=== PATIENT | male | born 1945 | race African-American/Black ===

== ENCOUNTER 2020-11-14 14:28 | Inpatient (IN) | payer OTHER, MEDICAID ==
[~2020-11-14] VITALS: Ht 177.8 cm; Wt 101.6 kg
[2020-11-14] MEDS ORDERED: SODIUM CHLORIDE 0.9% 1,000 ML IV ONE (15:00)
[2020-11-14 15:32] LABS: BASOPHILS % 0.5 % (0.0-2.0); LYMPHOCYTES % 21.5 % (20.0-50.0); MEAN CORPUSCULAR HEMOGLOBIN 30.7 pg (28.0-32.0); MEAN CORPUSCULAR VOLUME 91.9 fL (80.0-94.0); MEAN PLATELET VOLUME 9.7 fl (7.4-10.4); MONOCYTES % 11.1 % (2.0-8.0); NEUTROPHILS % 66.9 % (40.0-76.0); PLATELET 89 x1000/uL (130-400); RED BLOOD CELL COUNT 4.24 mill/uL (4.7-6.1); RED CELL DISTRIBUTION WIDTH 15.1 % (11.6-14.6)
[2020-11-14 15:38] LABS: CHLORIDE 109 mEq/L (98-107)
[2020-11-14 15:42] LABS: PROTHROMBIN TIME 11.2 sec (9.6-11.0)
[2020-11-14 17:35] LABS: CLARITY URINE CLEAR (CLEAR); COLOR URINE DARK YELLOW (YELLOW); KETONES URINE 1+ (NEGATIVE); LEUKOCYTE ESTERASE URINE NEGATIVE (NEGATIVE); NITRITE URINE NEGATIVE (NEGATIVE); OCCULT BLOOD URINE 2+ (NEGATIVE); PH URINE 5.5 (4.5-8.0); PROTEIN URINE 4+ (NEGATIVE); SPECIFIC GRAVITY URINE 1.022 (1.005-1.030)
[2020-11-14] MEDS ORDERED: ONDANSETRON HCL 4MG/2ML INJ IV ONE (17:45)
[2020-11-14] MEDS ORDERED: CEFTRIAXONE 1 G PREMIX 50 ML IV NR (19:00)
[2020-11-14] MEDS ORDERED: ENOXAPARIN 40MG/0.4ML SYR SUBCUT SCH (21:15)
[2020-11-14] MEDS ORDERED: LORAZEPAM 2MG/ML CPJ IV PRN (21:15)
[2020-11-14] MEDS ORDERED: CLONIDINE 0.1MG TABLET PO PRN (21:15)
[2020-11-14] MEDS ORDERED: ACETAMINOPHEN 325MG TABLET PO PRN (21:15)
[2020-11-14] MEDS ORDERED: MAGNESIUM/ALUMINUM HYDROXIDE/SIMETHICONE 30ML UDC PO PRN (21:15)
[2020-11-14] MEDS ORDERED: ONDANSETRON HCL 4MG/2ML INJ IV PRN (21:15)
[2020-11-14 22:00] VITALS: BP 140/72
[2020-11-14] MEDS ORDERED: CEFTRIAXONE 1 G PREMIX 50 ML IV SCH (22:00)
[2020-11-14] MEDS: SODIUM CHLORIDE 0.45% 1,000 ML IV SCH (22:35)
[2020-11-15] VITALS: BP_SYST 137; BP_SYST 157; BP_DIAS 75
[2020-11-15 04:00] VITALS: BP 140/75
[2020-11-15 05:34] LABS: BASOPHILS % 0.4 % (0.0-2.0); CHLORIDE 110 mEq/L (98-107); HEMATOCRIT. 36.9 % (42.0-52.0); HEMOGLOBIN. 12.3 g/dL (14.0-18.0); LYMPHOCYTES % 25.9 % (20.0-50.0); MEAN CORPUSCULAR HEMOGLOBIN 30.3 pg (28.0-32.0); MEAN CORPUSCULAR VOLUME 91.2 fL (80.0-94.0); MEAN PLATELET VOLUME 9.4 fl (7.4-10.4); MONOCYTES % 12.8 % (2.0-8.0); NEUTROPHILS % 60.9 % (40.0-76.0); PLATELET 91 x1000/uL (130-400); RED BLOOD CELL COUNT 4.05 mill/uL (4.7-6.1); RED CELL DISTRIBUTION WIDTH 15.1 % (11.6-14.6)
[2020-11-15 05:49] LABS: T4 FREE 0.64 ng/dL (0.76-1.46)
[2020-11-15 08:00] VITALS: BP 132/74
[2020-11-15] MEDS: MULTIVITAMINS,THER W-MINERALS TABLET PO SCH (10:02)
[2020-11-15] MEDS: FOLIC ACID 1MG TABLET PO SCH (10:02)
[2020-11-15] MEDS: ASPIRIN 81MG EC TABLET PO SCH (10:02)
[2020-11-15] MEDS: THIAMINE HCL 100MG TABLET PO SCH (10:04)
[2020-11-15] MEDS: AMLODIPINE 10MG TABLET PO SCH (10:15)
[2020-11-15 12:00] VITALS: BP 106/74
[2020-11-15 12:41] LABS: VITAMIN B12 SERUM 915 pg/mL (211-911)
[2020-11-15] MEDS: SODIUM CHLORIDE 0.45% 1,000 ML IV SCH (15:29)
[2020-11-15 16:00] VITALS: BP 159/65
[2020-11-15] MEDS ORDERED: ASPI81TA47 PO (17:20)
[2020-11-15] MEDS ORDERED: LISI-186 PO (17:20)
[2020-11-15] MEDS ORDERED: ALBU4TAB6 MT (17:20)
[2020-11-15] MEDS ORDERED: SIME40DR70 PO (17:20)
[2020-11-15] MEDS ORDERED: HYDR5TAB13 PO (17:20)
[2020-11-15] MEDS ORDERED: LEVO88TA7 PO (17:20)
[2020-11-15] MEDS ORDERED: FLUT12AE7 INH (17:20)
[2020-11-15] MEDS ORDERED: TOPUD MT (17:20)
[2020-11-15] MEDS ORDERED: FOLI-43 PO (17:20)
[2020-11-15] MEDS ORDERED: ATOR20TA65 PO (17:20)
[2020-11-15] MEDS ORDERED: COLC0.6C3 PO (17:20)
[2020-11-15] MEDS ORDERED: POTA20TA82 PO (17:20)
[2020-11-15 20:00] VITALS: BP 149/73
[2020-11-15] MEDS: CEFTRIAXONE 1,000 MG in DEXTROSE 5% WATER 50 ML IV SCH (20:44)
[2020-11-15] MEDS: DEXT 5%/0.45% NACL 1000ML 1,000 ML IV SCH (20:44)
[2020-11-16] VITALS: BP 131/65
[2020-11-16 04:00] VITALS: BP 138/64
[2020-11-16] MEDS ORDERED: ACETAMINOPHEN 650MG SUPP PR PRN (06:30)
[2020-11-16 08:50] VITALS: BP 110/59
[2020-11-16] MEDS: AMLODIPINE 10MG TABLET PO SCH (09:48)
[2020-11-16] MEDS: FOLIC ACID 1MG TABLET PO SCH (09:48)
[2020-11-16] MEDS: ASPIRIN 81MG EC TABLET PO SCH (09:48)
[2020-11-16] MEDS: MULTIVITAMINS,THER W-MINERALS TABLET PO SCH (09:48)
[2020-11-16] MEDS: DEXT 5%/0.45% NACL 1000ML 1,000 ML IV SCH ×2 (09:49→23:45)
[2020-11-16] MEDS: THIAMINE HCL 100MG TABLET PO SCH (09:49)
[2020-11-16 12:00] VITALS: BP 94/55
[2020-11-16 12:32] LABS: BASOPHILS % 0.4 % (0.0-2.0); EOSINOPHILS % 0.2 % (0.0-5.0); HEMOGLOBIN. 12.3 g/dL (14.0-18.0); LYMPHOCYTES % 25.9 % (20.0-50.0); MEAN CORPUSCULAR HEMOGLOBIN 30.3 pg (28.0-32.0); MEAN CORPUSCULAR VOLUME 93.3 fL (80.0-94.0); MEAN PLATELET VOLUME 8.8 fl (7.4-10.4); NEUTROPHILS % 61.5 % (40.0-76.0); PLATELET 90 x1000/uL (130-400); RED BLOOD CELL COUNT 4.08 mill/uL (4.7-6.1); RED CELL DISTRIBUTION WIDTH 14.9 % (11.6-14.6)
[2020-11-16 12:42] LABS: CHLORIDE 111 mEq/L (98-107)
[2020-11-16 16:00] VITALS: BP 114/63
[2020-11-16 20:00] VITALS: BP 118/63
[2020-11-16] MEDS: CEFTRIAXONE 1,000 MG in DEXTROSE 5% WATER 50 ML IV SCH (20:29)
[2020-11-17] VITALS: BP 110/65
[2020-11-17 04:00] VITALS: BP 122/62
[2020-11-17 08:00] VITALS: BP 109/56
[2020-11-17] MEDS: AMLODIPINE 10MG TABLET PO SCH (08:47)
[2020-11-17] MEDS: MULTIVITAMINS,THER W-MINERALS TABLET PO SCH (08:50)
[2020-11-17] MEDS: ASPIRIN 81MG EC TABLET PO SCH (08:50)
[2020-11-17] MEDS: THIAMINE HCL 100MG TABLET PO SCH (08:50)
[2020-11-17] MEDS: FOLIC ACID 1MG TABLET PO SCH (08:50)
[2020-11-17 12:00] VITALS: BP 97/54
[2020-11-17] MEDS: DEXAMETHASONE 10 MG/ML VIAL IV SCH (12:13)
[2020-11-17] MEDS: DEXT 5%/0.45% NACL 1000ML 1,000 ML IV SCH (12:14)
[2020-11-17 16:00] VITALS: BP 113/65
[2020-11-17 20:00] VITALS: BP 131/74
[2020-11-17] MEDS: CEFTRIAXONE 1,000 MG in DEXTROSE 5% WATER 50 ML IV SCH (20:58)
[2020-11-18] VITALS: BP 118/73
[2020-11-18] MEDS: DEXT 5%/0.45% NACL 1000ML 1,000 ML IV SCH ×2 (03:51→14:59)
[2020-11-18 04:00] VITALS: BP 118/75
[2020-11-18 08:00] VITALS: BP 125/78
[2020-11-18] MEDS: ASPIRIN 81MG EC TABLET PO SCH (08:29)
[2020-11-18] MEDS: THIAMINE HCL 100MG TABLET PO SCH (08:29)
[2020-11-18] MEDS: FOLIC ACID 1MG TABLET PO SCH (08:29)
[2020-11-18] MEDS: MULTIVITAMINS,THER W-MINERALS TABLET PO SCH (08:29)
[2020-11-18] MEDS: AMLODIPINE 10MG TABLET PO SCH (08:30)
[2020-11-18] MEDS: DEXAMETHASONE 10 MG/ML VIAL IV SCH (08:30)
[2020-11-18 12:00] VITALS: BP 121/71
[2020-11-18 16:00] VITALS: BP 113/68
[2020-11-18 20:00] VITALS: BP 123/66
[2020-11-18] MEDS: CEFTRIAXONE 1,000 MG in DEXTROSE 5% WATER 50 ML IV SCH (21:07)
[2020-11-19] VITALS: BP 125/74
[2020-11-19 04:00] VITALS: BP 126/72
[2020-11-19] MEDS: DEXT 5%/0.45% NACL 1000ML 1,000 ML IV SCH ×2 (04:24→16:53)
[2020-11-19 08:00] VITALS: BP 129/75
[2020-11-19] MEDS: THIAMINE HCL 100MG TABLET PO SCH (08:24)
[2020-11-19] MEDS: ASPIRIN 81MG EC TABLET PO SCH (08:24)
[2020-11-19] MEDS: MULTIVITAMINS,THER W-MINERALS TABLET PO SCH (08:25)
[2020-11-19] MEDS: AMLODIPINE 10MG TABLET PO SCH (08:25)
[2020-11-19] MEDS: FOLIC ACID 1MG TABLET PO SCH (08:25)
[2020-11-19] MEDS: DEXAMETHASONE 10 MG/ML VIAL IV SCH (08:25)
[2020-11-19 12:00] VITALS: BP 125/71
[2020-11-19 16:00] VITALS: BP 127/70
[2020-11-19 20:03] VITALS: BP 121/70
[2020-11-20] VITALS: BP 136/71
[2020-11-20] MEDS: CEFTRIAXONE 1,000 MG in DEXTROSE 5% WATER 50 ML IV SCH (00:41)
[2020-11-20 08:00] VITALS: BP 103/45
[2020-11-20] MEDS: DEXAMETHASONE 10 MG/ML VIAL IV SCH (08:51)
[2020-11-20] MEDS: MULTIVITAMINS,THER W-MINERALS TABLET PO SCH (08:51)
[2020-11-20] MEDS: FOLIC ACID 1MG TABLET PO SCH (08:51)
[2020-11-20] MEDS: ASPIRIN 81MG EC TABLET PO SCH (08:51)
[2020-11-20] MEDS: THIAMINE HCL 100MG TABLET PO SCH (08:51)
[2020-11-20] MEDS: AMLODIPINE 10MG TABLET PO SCH (08:51)
[2020-11-20] MEDS: DEXT 5%/0.45% NACL 1000ML 1,000 ML IV SCH (08:52)
[2020-11-20 11:25] VITALS: BP 119/69
[2020-11-20 12:00] VITALS: BP 119/69
[2020-11-20 12:17] LABS: CHLORIDE 113 mEq/L (98-107)
[2020-11-20 16:00] VITALS: BP 128/76
[2020-11-20 20:00] VITALS: BP 112/44
[2020-11-21] VITALS: BP 116/59
[2020-11-21 04:00] VITALS: BP 101/46
[2020-11-21 08:00] VITALS: BP 123/66
[2020-11-21] MEDS: FOLIC ACID 1MG TABLET PO SCH (08:07)
[2020-11-21] MEDS: MULTIVITAMINS,THER W-MINERALS TABLET PO SCH (08:07)
[2020-11-21] MEDS: DEXAMETHASONE 10 MG/ML VIAL IV SCH (08:07)
[2020-11-21] MEDS: THIAMINE HCL 100MG TABLET PO SCH (08:07)
[2020-11-21] MEDS: ASPIRIN 81MG EC TABLET PO SCH (08:07)
[2020-11-21] MEDS: AMLODIPINE 10MG TABLET PO SCH (08:08)
[2020-11-21 10:49] VITALS: BP 111/70
[2020-11-21 12:00] VITALS: BP 111/70
== END 2020-11-21 14:45 | disposition home or self-care (01) | DRG 177 ==
LOC: ER 14:28 → 8WST 19:04 → ENRESERV 20:30 → 7WST 11-16 09:37
PROVIDERS: ADMIT Hospitalist; ATTEND Hospitalist
DX: U07.1 COVID-19 (principal); N17.0 Acute kidney failure with tubular necrosis; G93.40 Encephalopathy, unspecified; J98.11 Atelectasis; D63.8 Anemia in other chronic diseases classified elsewhere; F03.90 Unspecified dementia, unspecified severity, without behavioral disturbance, psychotic disturbance, mood disturbance, and anxiety; N18.9 Chronic kidney disease, unspecified; I13.10 Hypertensive heart and chronic kidney disease without heart failure, with stage 1 through stage 4 chronic kidney disease, or unspecified chronic kidney disease; R62.7 Adult failure to thrive
CPT/HCPCS: 36415; 70551; 71045; 80048; 80053; 81003; 82140; 82607; 83605; 84145; 84439; 84443; 85025; 92610; 93005; 93970; 95816; 99291; J0696; J1100; J2405; J7060; U0003; U0005